=== PATIENT | female | born 1960 | race Caucasian/White ===

== ENCOUNTER 2020-12-16 07:16 | Emergency (ER) | payer BC ==
[2020-12-16 07:21] VITALS: BP 155/93; PULSE 67; RESP 18; TEMP 97.4
[2020-12-16] MEDS ORDERED: methylPREDNISolone SOD SUCCI 125 MG/2 ML VIAL IM ONE (07:29)
[2020-12-16] MEDS ORDERED: MORPHINE SULFATE 4 MG/ML SYRINGE IM STA (07:29)
--- NOTE | 2020-12-16 08:48 | XR ---
EXAMINATION TYPE: XR lumbar spine 2 or 3V DATE OF EXAM: 12/16/2020 CLINICAL HISTORY: Injury yesterday with pain. TECHNIQUE: Frontal and lateral images of the lumbar spine are obtained. COMPARISON: None FINDINGS: There is asymmetric smaller right T12 rib. There are 5 lumbar type vertebral bodies identi fied. There is levoconvex scoliosis centered at L2-L3 level. There is grade 1 anterolisthesis L4 on L 5 and to a greater degree L5 on S1. Mild multilevel disc space narrowing L3-L4 through the L5-S1 leve ls. Vertebral body heights are maintained without acute fracture. Overlying soft tissue is unremarkab le. IMPRESSION: As above.
[2020-12-16] MEDS ORDERED: ACET/COD 300 MG/30 MG STARTER PACK 6 TAB BTL PO STA (09:11)
--- NOTE | 2020-12-16 09:12 | ED ---
Back Pain HPI - General Chief Complaint: Back Pain/Injury Stated Complaint: Injury,Back Pain Time Seen by Provider: 12/16/20 07:26 Source: patient, RN notes reviewed Limitations: no limitations - History of Present Illness Initial Comments: Patient is a 60-year-old female that presents to emergency department complaining of left lower back pain. She notes she was getting off a tractor when she noted that she had sharp pain in her lower back. She denied any radicular symptoms down her legs. She denied any saddle anesthesia bladder bowel incontinence or retention. She was otherwise a well-appearing 60-year-old female. She noted that her pain was a 8-9 out of 10 with no relief from at home therapies. She came in for evaluation today. She denied any chest pain shortn ess of breath headache nausea vomiting diarrhea constipation fever fatigue chills weakness numbness tingling in bilateral lower extremities. - Related Data Previous Rx's Medication Instructions Recorded Baclofen [Lioresal] 5 mg PO TID 7 Days #21 tablet 12/16/20 Allergies Allergy/AdvReac Type Severity Reaction Status Date / Time adhesive Allergy Rash/Hives. Verified 12/16/20 07:21 PEELING SKIN Latex, Natural Rubber Allergy Rash/Hives Verified 12/16/20 07:21 Review of Systems ROS Statement: Those systems with pertinent positive or pertinent negative responses have been documented in the HPI. ROS Other: All systems not noted in ROS Statement are negative. Past Medical History Past Medical History: Cancer, Pneumonia Additional Past Medical History / Comment(s): LEFT BREAST CANCER History of Any Multi-Drug Resistant Organisms: None Reported Additional Past Surgical History / Comment(s): BILATERAL MASTECTOMY. PILONIDAL CYST. Past Anesthesia/Blood Transfusion Reactions: Motion Sickness Past Psychological History: No Psychological Hx Reported Smoking Status: Never smoker Past Alcohol Use History: None Reported Past Drug Use History: None Reported General Exam Limitations: no limitations General appearance: alert, in no apparent distress Head exam: Present: atraumatic, normocephalic, normal inspection Eye exam: Present: normal appearance, PERRL, EOMI. Absent: scleral icterus, conjunctival injection, periorbital swelling Neck exam: Present: normal inspection Respiratory exam: Present: normal lung sounds bilaterally. Absent: respiratory distress, wheezes, rales, rhonchi, stridor Cardiovascular Exam: Present: regular rate, normal rhythm, normal heart sounds. Absent: systolic murmur, diastolic murmur, rubs, gallop, clicks GI/Abdominal exam: Present: soft, normal bowel sounds. Absent: distended, tenderness, guarding, rebound, rigid Extremities exam: Present: normal inspection, full ROM, normal capillary refill. Absent: tenderness, pedal edema, joint swelling, calf tenderness Back exam: Present: normal inspection, full ROM. Absent: tenderness Neurological exam: Present: alert, oriented X3 Psychiatric exam: Present: normal affect, normal mood Skin exam: Present: warm, dry, intact, normal color. Absent: rash Course Vital Signs 12/16/20 07:19 Temperature 97.4 F L Pulse Rate 67 Respiratory 18 Rate Blood Pressure 155/93 O2 Sat by Pulse 99 Oximetry Medical Decision Making - Medical Decision Making 60-year-old female complaining of low back pain after getting off the tractor yesterday. X-ray lumbar spine, 4 mg of morphine, 125 mg of Solu-Medrol. X-ray negative for any acute fractures dislocations. Patient most likely has muscle spasms and inflammation. Case discussed with Dr. Larry, patient can discharge home with follow-up to primary care. - Radiology Data Radiology results: report reviewed, image reviewed X-ray lumbar spine: There is asymmetric smaller right T12 rib. There are 5 lumbar type vertebral bodies identified. There is levoconvex scoliosis centered at L2-L3 level. There is grade 1 anterior listhesis L4 on L5 and [address] ree L5 on S1. Mild multilevel disc space narrowing L3-L4 through the L5-S1 levels. For Tebo body heights are maintained without acute fracture. Overlying soft tissue unremarkable. Disposition Clinical Impression: Strain of lumbar region, Muscle spasm of back Disposition: HOME SELF-CARE Condition: Stable Instructions (If sedation given, give patient instructions): Acute Low Back Pain (ED) Additional Instructions: Please return to the Emergency Department if symptoms worsen or any other concerns. Take medication as prescribed. Follow-up primary care in the next 1-2 days. Take it easy over the next several days, avoid any strenuous activity or exercise. Is patient prescribed a controlled substance at d/c from ED?: No Referrals: Noreen Espinosa MD [Primary Care Provider] - 1-2 days Time of Disposition: 09:12
== END 2020-12-16 09:42 | disposition home or self-care (01) ==
LOC: EC 07:16
DX: S39.012A Strain of muscle, fascia and tendon of lower back, initial encounter (principal); M62.830 Muscle spasm of back; Z91.040 Latex allergy status; Z85.3 Personal history of malignant neoplasm of breast; X50.0XXA Overexertion from strenuous movement or load, initial encounter
CPT/HCPCS: 99283; 96372 ×2; 72100; J2270; J2930

== ENCOUNTER → 2021-11-04 | Outpatient (CLI) | payer BC ==
--- NOTE | 2021-11-04 12:29 | XR ---
EXAMINATION TYPE: XR ribs RT w pa chest xray DATE OF EXAM: 11/04/2021 10:51 AM INDICATION: Patient age:Female; 61 years old; Reason for study: [id number] INTERCOSTAL PAIN; COMPARISON: None. TECHNIQUE: Frontal and oblique views of the right ribs with frontal chest radiograph. FINDINGS: The ribs have a normal appearance. No evidence of fracture. Overall, the lungs are clear. The cardiac silhouette is normal in size. The remaining osseous structures are intact. IMPRESSION RIBS: No acute osseous pathology.
== END | disposition home or self-care (01) ==
LOC: RADXRYALE 10:35
PROVIDERS: ATTEND Internal Medicine
DX: R07.82 Intercostal pain (principal)

== ENCOUNTER → 2021-12-16 | Outpatient (CLI) | payer BC ==
[2021-12-16 18:45] LABS: African American GFR (CKD) 82.6 (60.0-200.0); Anion Gap 10.6 mmol/L (10.00-18.00); Blood Urea Nitrogen 9.4 mg/dL (9.0-27.0); Carbon Dioxide 27.6 mmol/L (20.0-27.5); Non-African American GFR(CKD) 71.2 (60.0-200.0); Potassium 4.6 mmol/L (3.5-5.5)
== END | disposition home or self-care (01) ==
LOC: LABWHC1 10:47
PROVIDERS: ATTEND Internal Medicine Interventional Cardiology
DX: Z86.79 Personal history of other diseases of the circulatory system (principal)
CPT/HCPCS: 36415; 80051; 82565; 84443; 84520

== ENCOUNTER → 2022-01-27 | Outpatient (CLI) | payer BC ==
--- NOTE | 2022-01-27 16:28 | CA ---
Stress Echo Report Sujey Sanz Age: 61 Gender: F : 1960 Exam Date: 01/27/2022 09:28 Exam Location: [facility] [place] [facility] Ht (in): 64 Wt (lb): 195 Ordering Physician: Kassandra Herrera MD ([id number]) Referring Physician: Lianet Frias NPC Second Chef: Damaris Reich RDCS Technologist Procedure CPT: Indication: I49.3 ventricular premature depolarization ICD-9 Codes: Rhythm: Patient History: Cardiac Medications: Medications in past 24 hours: Contrast: Stress Results Protocol: Osvaldo Total dose(mL): Exercise Duration (min:sec): 9:[address] Depression (mm): Angina Score: Linton Score: METS: 10.5 Resting HR: 77 Resting BP: 142 / 86 Peak HR: 146 Peak BP: 228 / 65 Max Predicted HR: 161 91 % Max Predicted HR Target HR: 137 Double Product: [id number] Stress Summary: BP Response: Reason for Termination: Cardiac Symptoms: ECG Analysis Resting ECG: Stress ECG: Arrhythmia: Echo Analysis Resting Echo: Peak Echo Analysis: MEASUREMENTS (Male/Female) Normal Values CONCLUSIONS Exercise stress echo for chest pain Baseline heart rate 70 beats a minute, Baseline blood pressure 140 286 L of mercury Baseline twelve-lead EKG shows sinus mechanism with T-wave inversions V2-V6 Patient exercised on a Osvaldo protocol for 9 minutes achieving a peak heart rate of 146 beats a minute. Peak blood pressure 228/65 mmHg Show short of breath at peak exercise She had bursts of PVCs in a bigeminal pattern repeatedly through the test No nonsustained ventricular tachycardia No clear-cut evidence for ischemia Baseline 2-D echo images showed normal LV systolic function without segmental wall motion abnormalities At peak exercise there was excellent augmentation of overall contractility without development only wall motion abnormalities At recovery diffusion global LV systolic function remained normal Impression Good exercise capacity and a Osvaldo protocol without evidence for ischemia Bursts of PVCs often in a bigeminal pattern No nonsustained VT Dr. Terrell Urena MD (Electronically Signed) Final Date: 27 January 2022 16:27
== END | disposition home or self-care (01) ==
LOC: RADNMMAIN 09:01
PROVIDERS: ATTEND Internal Medicine Interventional Cardiology
DX: I49.3 Ventricular premature depolarization (principal)
CPT/HCPCS: 93351

== ENCOUNTER → 2022-01-30 | Outpatient (CLI) | payer BC ==
--- NOTE | 2022-01-30 08:13 | US ---
EXAMINATION TYPE: US liver DATE OF EXAM: 01/30/2022 COMPARISON: NONE CLINICAL HISTORY: hepatic cyst Q44.6. Hepatic cyst. Patient states they saw a cyst on other imaging. TECHNIQUE: Multiple sonographic images of the right upper quadrant are obtained. FINDINGS: EXAM MEASUREMENTS: Liver Length: 14.5 cm Gallbladder Wall: 0.19 cm CBD: 0.52 cm Right Kidney: 11.9 x 4.9 x 4.0 cm JEWELER APPRENTICE NOTES: Limited due to overlying bowel gas. Pancreas: Limited visibility of tail. Liver: Multiple anechoic and complex areas seen throughout the liver. Largest appears to measure: 6. 4 x 6.3 x 4.7 cm. Gallbladder: Folds seen. Appears anechoic. Evidence for sonographic Granger's sign: No CBD: Portions seen appear wnl Right Kidney: No hydronephrosis or masses seen IMPRESSION: 1. Multiple hepatic cysts.
== END | disposition home or self-care (01) ==
LOC: RADUSWWP 06:47
PROVIDERS: ATTEND Internal Medicine Interventional Cardiology
DX: K76.89 Other specified diseases of liver (principal)
CPT/HCPCS: 76705

== ENCOUNTER → 2022-10-12 | Outpatient (CLI) | payer BC ==
--- NOTE | 2022-10-12 08:03 | US ---
EXAMINATION TYPE: US abdomen complete DATE OF EXAM: 10/12/2022 COMPARISON: 01/30/2023 CLINICAL INDICATION: Female, 62 years old with history of Q44.6 CYSTIC DISEASE OF LIVER; Follow up li ezequiel cysts TECHNIQUE: Multiple sonographic images of the abdomen are obtained. FINDINGS: EXAM MEASUREMENTS: Liver Length: 16.6 cm Gallbladder Wall: 0.2 cm CBD: 0.5 cm Spleen: 12.3 cm Right Kidney: 12.4x4.5x4.6 cm Left Kidney: 11.7x4.3x5.2 cm ACCOUNT RESOLUTION SPECIALIST NOTES: Pancreas: Tail obscured by overlying bowel gas Liver: cystic areas measured: Lt lobe: 1.6x0.6x1.4cm Rt lobe Lat: 7.0x4.3x4.6cm septation noted within Rt lobe med: 3.8x3.6x3.2cm septation noted within Gallbladder: wnl Evidence for sonographic Granger's sign: No CBD: wnl Spleen: wnl Right Kidney: wnl Left Kidney: wnl Upper IVC: wnl Abd Aorta: wnl The intrahepatic portion of the IVC and proximal abdominal aorta are within normal limits. There is no evidence of cholelithiasis. Common bile duct is unremarkable. The visualized portions of the lees creas are homogenous. The spleen is unremarkable. Kidneys are symmetric and free of hydronephrosis. No renal lesions are seen. IMPRESSION: 1. Septated hepatic cysts.
[2022-10-12 16:15] LABS: ALT 29 U/L (8-44); AST 18 U/L (13-35); Albumin 4.7 d/dL (3.8-4.9); Albumin/Globulin Ratio 2.04 Ratio (1.60-3.17); Alkaline Phosphatase 80 U/L (41-126); BUN/Creat Ratio 19.56 Ratio (12.00-20.00); Blood Urea Nitrogen 17.6 mg/dL (9.0-27.0); Calcium 9.5 mg/dL (8.7-10.3); Carbon Dioxide 27.3 mmol/L (21.6-31.8); Chloride 102 mmol/L (96-109); Chol/HDL Ratio 3.32 Ratio; Globulin 2.3 d/dL (1.6-3.3); Glucose 99 mg/dL (70-110); LDL Cholesterol,Calculated 140.9 mg/dL (0.0-131.0); Potassium 4.2 mmol/L (3.5-5.5); Sodium 141 mmol/L (135-145); Total Bilirubin 0.3 mg/dL (0.3-1.2); VLDL Calculation 14.92 mg/dL (5.00-40.00)
[2022-10-12 16:47] LABS: Basophils # (A) 0.04 X 10*3/uL (0.00-0.10); Basophils % (A) 0.9 %; Eosinophils # (A) 0.17 X 10*3/uL (0.04-0.35); Eosinophils % (A) 3.7 %; HCT 43.4 % (37.2-46.3); HGB 14.2 d/dL (12.0-15.0); Lymphocytes # (A) 1.08 X 10*3/uL (0.90-5.00); Lymphocytes % (A) 23.2 %; MCH 28.7 pg (27.0-32.0); MCHC 32.7 d/dL (32.0-37.0); MCV 87.9 FL (80.0-97.0); Mean Platelet Volume 10.4 FL (9.5-12.2); Monocytes # (A) 0.32 X 10*3/uL (0.20-1.00); Monocytes % (A) 6.9 %; NRBC Per 100 WBC 0 X 10*3/uL (0.00-0.01); Neutrophils # (A) 3.02 X 10*3/uL (1.80-7.70); Neutrophils % (A) 64.9 %; Platelet Count 206 X 10*3/uL (140-440); RBC 4.94 X 10*6/uL (4.10-5.20); RDW 13.2 % (11.5-14.5); WBC 4.65 X 10*3/uL (4.50-10.00)
== END | disposition home or self-care (01) ==
LOC: RADUSWWP 07:04
PROVIDERS: ATTEND Family Medicine
DX: Z13.1 Encounter for screening for diabetes mellitus (principal); Z13.220 Encounter for screening for lipoid disorders; K76.89 Other specified diseases of liver; Q44.6 Cystic disease of liver
CPT/HCPCS: 76700; 80053; 80061; 85025